=== PATIENT | female | born 2000 | race Caucasian/White ===

== ENCOUNTER 2022-06-18 15:07 | Outpatient (CLI) | payer BC, SELFPAY | END 2022-06-18 15:08 | disposition home or self-care (01) | LOC: LKVREF 06-26 10:54 | PROVIDERS: PCP Physician Assistant Medical; Visit Provider Nurse Practitioner Family | DX: R30.0 Dysuria (principal); N39.0 Urinary tract infection, site not specified | CPT/HCPCS: 87086 ==

== ENCOUNTER 2022-11-20 12:04 | Outpatient (CLI) | payer BC, SELFPAY | END 2022-11-20 12:05 | disposition home or self-care (01) | LOC: LKVREF 12:05 | PROVIDERS: PCP Physician Assistant Medical; Visit Provider Physician Assistant Medical | DX: Z32.02 Encounter for pregnancy test, result negative (principal) | CPT/HCPCS: 84702 ==

== ENCOUNTER 2023-04-14 16:21 | Outpatient (CLI) | payer BC, SELFPAY ==
[2023-04-14 23:34] LABS: Chlamydia DNA Amplified* NOT DETECTED (No Detected); GC DNA Amplified* NOT DETECTED (No Detected)
== END 2023-04-14 16:22 | disposition home or self-care (01) ==
PROVIDERS: PCP Physician Assistant Medical; Visit Provider Physician Assistant Medical
DX: N76.0 Acute vaginitis (principal)
CPT/HCPCS: 87109; 87491; 87591